=== PATIENT | male | born 1975 | race Caucasian/White ===

== ENCOUNTER 2019-02-08 17:13 | Emergency (ER) | payer OTHER, SELFPAY ==
[2019-02-08 17:33] VITALS: BP 116/86; PULSE 92; RESP 17; TEMP 37; O2SAT 97
--- NOTE | 2019-02-08 17:55 | W.ED.GENAD ---
Discharge Plan Disposition Patient Disposition: [facility] Discharge Details Chief Complaint: ETOHWithdr Clinical Impression: Alcohol withdrawal, Hypokalemia Primary Care Provider: Kim,Local ED Provider: Gerald Gallagher Discharge Instructions Instructions: Hypokalemia (ED) Additional Instructions: You have been evaluated in the emergency room for suspected alcohol withdrawal symptoms. You were found to have a mild low potassium for which we have given you replacement supplementation. You must continue with your alcohol withdrawal protocol in the [facility]. Please follow-up with the [facility] provider tomorrow for reevaluation. Discharge Data Discharge Date/Time-TO BE ENTERED AT DEPARTURE: 02/08/19 20:45 Discharge Physician: Gerald Gallagher Medical Decision Making This is a nontoxic-appearing 43-year-old gentleman with reported seizure-like activity and confusion via [facility] nurse. No seizure activity here. Slightly tremulous on exam. Alert and oriented x2 to person and time. He has no focal neurological deficits on exam. No meningeal signs. No fever and vitals otherwise stable. Labs unremarkable with the exception of a slight hypokalemia at 3.3. Head CT read as normal. Symptoms most likely as a result of EtOH withdrawal. Discussed findings with [facility] nurse who agrees and will kindly take patient back for continued medical detox Medical Records Medical records reviewed: Yes I reviewed the patient's medical records. HPI General Date/Time Provider Initiated Documentation: 02/08/19 17:21. HPI Narrative: Patient is a 43-year-old male who presents to us from the correctional facility for auditory/visual hallucinations in the setting of suspected EtOH detox. Patient has been getting Librium 50 mg 3 times daily. Thiamine was administered. He admits to a 16-year heavy EtOH consumption drinking roughly 6-16 ounce beers per day. His last EtOH consumption was over 48 hours ago. He was initially seen at [facility] where he was medically cleared and transferred to local correctional facility. At facility he has been uncooperative and not eating or drinking. Nurse reports that patient had questionable seizure-like activity. No postictal period. Symptoms lasted for roughly 30 seconds. He denies any history of seizure Related Data Allergies Allergy/AdvReac Type Severity Reaction Status Date / Time blueberry Allergy Unverified 02/08/19 17:35 cocoa butter Allergy Unverified 02/08/19 17:35 General Stated Complaint: ETOHWithdr RENAE: 3 Review of Systems Constitutional Denies anorexia, Denies body ache(s), Denies difficulty sleeping, Denies excessive sweating, Denies fever(s), Denies headache(s), Reports lethargy, Denies malaise, Denies night sweats, Reports poor appetite, Reports weakness and Denies weight loss Eyes Denies blurry vision, Denies change in vision, Denies decreased night vision and Denies diplopia ENT Denies dysphagia, Denies vertigo, Denies dizziness, Denies dry mouth, Denies headache(s) and Denies neck pain Cardiovascular Denies chest pain, Denies chest pain at rest, Denies chest pain with activity, Denies diaphoresis, Denies syncope, Denies rapid heart rate, Denies pedal edema, Denies edema, Denies irregular heart rhythm, Denies lightheadedness, Denies radiating jaw, neck or arm pain, Denies palpitations, Denies dyspnea, Denies dyspnea on exertion, Denies orthopnea and Denies slow heart rate Respiratory Denies dyspnea and Denies dyspnea on exertion Gastrointestinal Denies abdominal pain, Denies melena, Denies bloating, Denies hematochezia, Denies dysphagia, Denies diarrhea, Denies nausea and Denies vomiting Genitourinary Denies dysuria Musculoskeletal Reports back pain, Denies joint swelling and Denies neck pain Neurologic Reports confusion, Denies vertigo, Denies dizziness, Denies syncope, Denies headache(s) and Reports weakness Psychiatric Reports confusion, Denies depression, Reports auditory hallucinations, Reports irritability, Reports mood swings, Denies homicidal ideation and Denies suicidal ideation Endocrine Denies excessive sweating and Denies palpitations [facility] Social History Smoking/Tobacco Use Status: Former Tobacco Use Alcohol Intake: former Details: last drink 01/31/19, heavy drinker prior Additional Social history: lives in correctional facility. Not able to assess privately Exam Const General: cooperative and no acute distress Nutritional Appearance: malnourished and thin Orientation: alert, awake, oriented x3, oriented to person, not oriented to place and oriented to time HENVT Head: normal to inspection, normocephalic and atraumatic Mouth: No moist mucous membranes abnormal Teeth and gingiva: dentition normal Throat: posterior oropharynx normal Eyes Sclera: scleral abnormality (scleral ictarus) bilaterally Neck Neck: normal visual inspection, full ROM and no meningeal signs Chest Chest: normal inspection of the chest Resp Effort & Inspection: normal respiratory effort Auscultation: clear to auscultation bilaterally Cardio Jugular venous pressure: no JVD Palpation: normal PMI Rate: regular rate Heart Sounds: S1 normal GI Inspection: normal to inspection Palpation: soft Percussion: normal to percussion Back/Spine/Pelvis Back: no CVA tenderness Thoracic/Lumbar Spine: thoracic and lumbar spine normal to inspection Neuro General: alert, awake and oriented Patient Orientation: Person and Time Cranial Nerves: CN's II-XI intact bilaterally, PERRL, accommodation normal, EOM intact bilaterally, no nystagmus, facial strength normal, hearing normal, able to rotate head bilaterally and able to elevate shoulders bilaterally Cognition: normal cognition Speech: speech normal Motor: muscle tone normal throughout and strength 5/5 throughout Sensory Exam: no sensory deficits noted Coordination: stejvm-[id number] test normal and [id number] test normal Course Vital Signs Temperature 37.0 C 02/08/19 17:33 Pulse 92 H 02/08/19 17:33 Respiratory Rate 17 02/08/19 17:33 Blood Pressure 116/86 02/08/19 17:33 Pulse Oximetry 97 02/08/19 17:33 Temperature 37.0 C 02/08/19 17:33 Temperature Source Temporal Artery Scan 02/08/19 17:33 Pulse 92 H 02/08/19 17:33 Respiratory Rate 17 02/08/19 17:33 Blood Pressure 116/86 02/08/19 17:33 Blood Pressure Position Sitting 02/08/19 17:33 Pulse Oximetry 97 02/08/19 17:33 Oxygen Delivery Method Room Air 02/08/19 17:33 Oxygen Flow Rate 0 02/08/19 17:33 Pain Level 0 02/08/19 17:33 Lab/Test Results Lab/Test Results: Abnormal Labs 02/08/19 02/08/19 02/08/19 18:30 18:30 18:30 WBC 11.46 H RBC 3.37 L Hgb 9.6 L Hct 29.4 L RDW 17.8 H Absolute Neutrophils 8.33 H Absolute Monocytes 1.13 H Sodium 135 L Potassium 3.3 L Chloride 97 L Anion Gap 13.2 H Creatinine 1.47 H Magnesium 1.6 L Total Protein 8.7 H Acetaminophen < 2 L Laboratory Tests Range/Units 02/08/19 02/08/19 02/08/19 17:43 18:30 18:30 WBC (4.4-10.8) k/cumm RBC (4.50-6.00) m/cumm Hgb (13.5-17.5) g/dL Hct (40.0-50.0) % MCV (80-95) fL MCH (27.0-33.0) pg MCHC (32.0-36.0) g/dL RDW (11.8-14.1) % Plt Count (130-400) x1000/uL MPV (8.0-11.0) fL Immature Gran % Neutrophils % Lymphocytes % Monocytes % Eosinophils % Basophils % Absolute Neutrophils (1.2-6.7) k/cumm Absolute Lymphocytes (1.2-3.4) k/cumm Absolute Monocytes (0.11-0.7) k/cumm Absolute Eosinophils (0.0-0.7) k/cumm Absolute Basophils (0.0-0.2) k/cumm PT (9.3-11.0) sec INR (0.9-1.1) APTT (21.0-31.4) sec Sodium Cancelled 135 L Potassium Cancelled 3.3 L Chloride Cancelled 97 L Carbon Dioxide Cancelled 24.8 Anion Gap Cancelled 13.2 H BUN Cancelled 14 Creatinine Cancelled 1.47 H Estimated GFR/1.73 m2 Cancelled 51.80 Glucose Cancelled 77 Calcium Cancelled 9.0 Magnesium (1.8-2.4) mg/dL 1.6 L Total Bilirubin Cancelled 0.6 AST Cancelled 30 ALT Cancelled 24 Alkaline Phosphatase Cancelled 114 Troponin I Cancelled < 0.02 Total Protein Cancelled 8.7 H Albumin Cancelled 3.5 Amylase (25-115) U/L 87 Lipase (73-393) U/L 103 Salicylates (2.8-20.0) mg/dL 7.3 Acetaminophen (10-30) ug/mL < 2 L Ethyl Alcohol (<3) mg/dL < 3.0 Range/Units 02/08/19 02/08/19 18:30 18:30 WBC (4.4-10.8) k/cumm 11.46 H RBC (4.50-6.00) m/cumm 3.37 L Hgb (13.5-17.5) g/dL 9.6 L Hct (40.0-50.0) % 29.4 L MCV (80-95) fL 87.2 MCH (27.0-33.0) pg 28.5 MCHC (32.0-36.0) g/dL 32.7 RDW (11.8-14.1) % 17.8 H Plt Count (130-400) x1000/uL 303 MPV (8.0-11.0) fL 9.2 Immature Gran % 0.6 Neutrophils % 72.7 Lymphocytes % 16.0 Monocytes % 9.9 Eosinophils % 0.5 Basophils % 0.3 Absolute Neutrophils (1.2-6.7) k/cumm 8.33 H Absolute Lymphocytes (1.2-3.4) k/cumm 1.83 Absolute Monocytes (0.11-0.7) k/cumm 1.13 H Absolute Eosinophils (0.0-0.7) k/cumm 0.06 Absolute Basophils (0.0-0.2) k/cumm 0.03 PT (9.3-11.0) sec 10.4 INR (0.9-1.1) 1.0 APTT (21.0-31.4) sec 25.4 Sodium Potassium Chloride Carbon Dioxide Anion Gap BUN Creatinine Estimated GFR/1.73 m2 Glucose Calcium Magnesium (1.8-2.4) mg/dL Total Bilirubin AST ALT Alkaline Phosphatase Troponin I Total Protein Albumin Amylase (25-115) U/L Lipase (73-393) U/L Salicylates (2.8-20.0) mg/dL Acetaminophen (10-30) ug/mL Ethyl Alcohol (<3) mg/dL Laboratory Tests Range/Units 02/08/19 17:43 Sodium Cancelled Potassium Cancelled Chloride Cancelled Carbon Dioxide Cancelled Anion Gap Cancelled BUN Cancelled Creatinine Cancelled Estimated GFR/1.73 m2 Cancelled Glucose Cancelled Calcium Cancelled Total Bilirubin Cancelled AST Cancelled ALT Cancelled Alkaline Phosphatase Cancelled Troponin I Cancelled Total Protein Cancelled Albumin Cancelled
--- NOTE | 2019-02-08 18:05 | ED.GENADUL_ITS ---
Discharge Plan Disposition Patient Disposition: [facility] Discharge Details Chief Complaint: ETOHWithdr Clinical Impression: Alcohol withdrawal, Hypokalemia Primary Care Provider: Kim,Local ED Provider: Gerald Gallagher Discharge Instructions Instructions: Hypokalemia (ED) Additional Instructions: You have been evaluated in the emergency room for suspected alcohol withdrawal symptoms. You were found to have a mild low potassium for which we have given you replacement supplementation. You must continue with your alcohol withdrawal protocol in the [facility]. Please follow-up with the [facility] provider tomorrow for reevaluation. Discharge Data Discharge Date/Time-TO BE ENTERED AT DEPARTURE: 02/08/19 20:45 Discharge Physician: Gerald Gallagher Medical Decision Making This is a nontoxic-appearing 43-year-old gentleman with reported seizure-like activity and confusion via [facility] nurse. No seizure activity here. Slightly tremulous on exam. Alert and oriented x2 to person and time. He has no focal neurological deficits on exam. No meningeal signs. No fever and vitals otherwise stable. Labs unremarkable with the exception of a slight hypokalemia at 3.3. Head CT read as normal. Symptoms most likely as a result of EtOH withdrawal. Discussed findings with [facility] nurse who agrees and will kindly take patient back for continued medical detox Medical Records Medical records reviewed: Yes I reviewed the patient's medical records. HPI General Date/Time Provider Initiated Documentation: 02/08/19 17:21 . HPI Narrative: Patient is a 43-year-old male who presents to us from the correctional facility for auditory/visual hallucinations in the setting of suspected EtOH detox. Patient has been getting Librium 50 mg 3 times daily. Thiamine was adm inistered. He admits to a 16-year heavy EtOH consumption drinking roughly 6-16 ounce beers per day. His last EtOH consumption was over 48 hours ago. He was initially seen at [facility] where he was medically cleared and transferred to local correctional facility. At facility he has been uncooperative and not eating or drinking. Nurse reports that patient had questionable seizure-like activity. No postictal period. Symptoms lasted for roughly 30 seconds. He denies any history of seizure Related Data Allergies Allergy/AdvReac Type Severity Reaction Status Date / Time blueberry Allergy Unverified 02/08/19 17:35 cocoa butter Allergy Unverified 02/08/19 17:35 General Stated Complaint: ETOHWithdr RENAE: 3 Review of Systems Constitutional Denies anorexia, Denies body ache(s), Denies difficulty sleeping, Denies excessive sweating, Denies fever(s), Denies headache(s), Reports lethargy, Denies malaise, Denies night sweats, Reports poor appetite, Reports weakness and Denies weight loss Eyes Denies blurry vision, Denies change in vision, Denies decreased night vision and Denies diplopia ENT Denies dysphagia, Denies vertigo, Denies dizziness, Denies dry mouth, Denies headache(s) and Denies neck pain Cardiovascular Denies chest pain, Denies chest pain at rest, Denies chest pain with activity, Denies diaphoresis, Denies syncope, Denies rapid heart rate, Denies pedal edema, Denies edema, Denies irregular heart rhythm, Denies lightheadedness, Denies radiating jaw, neck or arm pain, Denies palpitations, Denies dyspnea, Denies dyspnea on exertion, Denies orthopnea and Denies slow heart rate Respiratory Denies dyspnea and Denies dyspnea on exertion Gastrointestinal Denies abdominal pain, Denies melena, Denies bloating, Denies hematochezia, Denies dysphagia, Denies diarrhea, Denies nausea and Denies vomiting Genitourinary Denies dysuria Musculoskeletal Reports back pain, Denies joint swelling and Denies neck pain Neurologic Reports confusion, Denies vertigo, Denies dizziness, Denies syncope, Denies headache(s) and Reports weakness Psychiatric Reports confusion, Denies depression, Reports auditory hallucinations, Reports irritability, Reports mood swings, Denies homicidal ideation and Denies suicidal ideation Endocrine Denies excessive sweating and Denies palpitations [facility] Social History Smoking/Tobacco Use Status: Former Tobacco Use Alcohol Intake: former Details: last drink 01/31/19, heavy drinker prior Additional Social history: lives in correctional facility. Not able to assess privately Exam Const General: cooperative and no acute distress Nutritional Appearance: malnourished and thin Orientation: alert, awake, oriented x3, oriented to person, not oriented to place and oriented to time HENMT Head: normal to inspection, normocephalic and atraumatic Mouth: No moist mucous membranes abnormal Teeth and gingiva: dentition normal Throat: posterior oropharynx normal Eyes Sclera: scleral abnormality (scleral ictarus) bilaterally Neck Neck: normal visual inspection, full ROM and no meningeal signs Chest Chest: normal inspection of the chest Resp Effort & Inspection: normal respiratory effort Auscultation: clear to auscultation bilaterally Cardio Jugular venous pressure: no JVD Palpation: normal PMI Rate: regular rate Heart Sounds: S1 normal GI Inspection: normal to inspection Palpation: soft Percussion: normal to percussion Back/Spine/Pelvis Back: no CVA tenderness Thoracic/Lumbar Spine: thoracic and lumbar spine normal to inspection Neuro General: alert, awake and oriented Patient Orientation: Person and Time Cranial Nerves: CN's II-XI intact bilaterally, PERRL, accommodation normal, EOM intact bilaterally, no nystagmus, facial strength normal, hearing normal, able to rotate head bilaterally and able to elevate shoulders bilaterally Cognition: normal cognition Speech: speech normal Motor: muscle tone normal throughout and strength 5/5 throughout Sensory Exam: no sensory deficits noted Coordination: [id number]-[id number] test normal and [id number]-er-[id number] test normal Course Vital Signs Temperature 37.0 C 02/08/19 17:33 Pulse 92 H 02/08/19 17:33 Respiratory Rate 17 02/08/19 17:33 Blood Pressure 116/86 02/08/19 17:33 Pulse Oximetry 97 02/08/19 17:33 Temperature 37.0 C 02/08/19 17:33 Temperature Source Temporal Artery Scan 02/08/19 17:33 Pulse 92 H 02/08/19 17:33 Respiratory Rate 17 02/08/19 17:33 Blood Pressure 116/86 02/08/19 17:33 Blood Pressure Position Sitting 02/08/19 17:33 Pulse Oximetry 97 02/08/19 17:33 Oxygen Delivery Method Room Air 02/08/19 17:33 Oxygen Flow Rate 0 02/08/19 17:33 Pain Level 0 02/08/19 17:33 Lab/Test Results Lab/Test Results: Abnormal Labs 02/08/19 02/08/19 02/08/19 18:30 18:30 18:30 WBC 11.46 H RBC 3.37 L Hgb 9.6 L Hct 29.4 L RDW 17.8 H Absolute Neutrophils 8.33 H Absolute Monocytes 1.13 H Sodium 135 L Potassium 3.3 L Chloride 97 L Anion Gap 13.2 H Creatinine 1.47 H Magnesium 1.6 L Total Protein 8.7 H Acetaminophen < 2 L Laboratory Tests Range/Units 02/08/19 02/08/19 02/08/19 17:43 18:30 18:30 WBC (4.4-10.8) k/cumm RBC (4.50-6.00) m/cumm Hgb (13.5-17.5) g/dL Hct (40.0-50.0) % MCV (80-95) fL MCH (27.0-33.0) pg MCHC (32.0-36.0) g/dL RDW (11.8-14.1) % Plt Count (130-400) x1000/uL MPV (8.0-11.0) fL Immature Gran % Neutrophils % Lymphocytes % Monocytes % Eosinophils % Basophils % Absolute Neutrophils (1.2-6.7) k/cumm Absolute Lymphocytes (1.2-3.4) k/cumm Absolute Monocytes (0.11-0.7) k/cumm Absolute Eosinophils (0.0-0.7) k/cumm Absolute Basophils (0.0-0.2) k/cumm PT (9.3-11.0) sec INR (0.9-1.1) APTT (21.0-31.4) sec Sodium Cancelled 135 L Potassium Cancelled 3.3 L Chloride Cancelled 97 L Carbon Dioxide Cancelled 24.8 Anion Gap Cancelled 13.2 H BUN Cancelled 14 Creatinine Cancelled 1.47 H Estimated GFR/1.73 m2 Cancelled 51.80 Glucose Cancelled 77 Calcium Cancelled 9.0 Magnesium (1.8-2.4) mg/dL 1.6 L Total Bilirubin Cancelled 0.6 AST Cancelled 30 ALT Cancelled 24 Alkaline Phosphatase Cancelled 114 Troponin I Cancelled < 0.02 Total Protein Cancelled 8.7 H Albumin Cancelled 3.5 Amylase (25-115) U/L 87 Lipase (73-393) U/L 103 Salicylates (2.8-20.0) mg/dL 7.3 Acetaminophen (10-30) ug/mL < 2 L Ethyl Alcohol (<3) mg/dL < 3.0 Range/Units 02/08/19 02/08/19 18:30 18:30 WBC (4.4-10.8) k/cumm 11.46 H RBC (4.50-6.00) m/cumm 3.37 L Hgb (13.5-17.5) g/dL 9.6 L Hct (40.0-50.0) % 29.4 L MCV (80-95) fL 87.2 MCH (27.0-33.0) pg 28.5 MCHC (32.0-36.0) g/dL 32.7 RDW (11.8-14.1) % 17.8 H Plt Count (130-400) x1000/uL 303 MPV (8.0-11.0) fL 9.2 Immature Gran % 0.6 Neutrophils % 72.7 Lymphocytes % 16.0 Monocytes % 9.9 Eosinophils % 0.5 Basophils % 0.3 Absolute Neutrophils (1.2-6.7) k/cumm 8.33 H Absolute Lymphocytes (1.2-3.4) k/cumm 1.83 Absolute Monocytes (0.11-0.7) k/cumm 1.13 H Absolute Eosinophils (0.0-0.7) k/cumm 0.06 Absolute Basophils (0.0-0.2) k/cumm 0.03 PT (9.3-11.0) sec 10.4 INR (0.9-1.1) 1.0 APTT (21.0-31.4) sec 25.4 Sodium Potassium Chloride Carbon Dioxide Anion Gap BUN Creatinine Estimated GFR/1.73 m2 Glucose Calcium Magnesium (1.8-2.4) mg/dL Total Bilirubin AST ALT Alkaline Phosphatase Troponin I Total Protein Albumin Amylase (25-115) U/L Lipase (73-393) U/L Salicylates (2.8-20.0) mg/dL Acetaminophen (10-30) ug/mL Ethyl Alcohol (<3) mg/dL Laboratory Tests Range/Units 02/08/19 17:43 Sodium Cancelled Potassium Cancelled Chloride Cancelled Carbon Dioxide Cancelled Anion Gap Cancelled BUN Cancelled Creatinine Cancelled Estimated GFR/1.73 m2 Cancelled Glucose Cancelled Calcium Cancelled Total Bilirubin Cancelled AST Cancelled ALT Cancelled Alkaline Phosphatase Cancelled Troponin I Cancelled Total Protein Cancelled Albumin Cancelled
[2019-02-08] MEDS: MAGNESIUM SULFATE 8.12 MEQ, MULTIVITAMIN 10 ML, THIAMINE 100 MG, FOLIC ACID 1 MG in Nor... 168.867 MG IV (18:25)
[2019-02-08] MEDS: LORazepam 1 MG TAB PO (18:25)
[2019-02-08 18:41] LABS: Abs Immature Grans 0.07 k/cumm (0.0-0.09); Absolute Basophil Count 0.03 k/cumm (0.0-0.2); Absolute Eosinophil Count 0.06 k/cumm (0.0-0.7); Absolute Lymphocyte Count 1.83 k/cumm (1.2-3.4); Absolute Neutrophil Count 8.33 k/cumm (1.2-6.7); Basophils % 0.3; Eosinophils % 0.5; HCT 29.4 % (40.0-50.0); HGB 9.6 g/dL (13.5-17.5); Immature Grans % 0.6; Mean Corp. HGB Concentration 32.7 g/dL (32.0-36.0); Mean Corpuscular Hemoglobin 28.5 pg (27.0-33.0); Mean Corpuscular Volume 87.2 fL (80-95); Mean Platelet Volume 9.2 fL (8.0-11.0); Monocytes % 9.9; Neutrophils % 72.7; Platelet Count 303 x1000/uL (130-400); RBC 3.37 m/cumm (4.50-6.00); RBC Distribution Width 17.8 % (11.8-14.1); White Blood Cell Count 11.46 k/cumm (4.4-10.8)
[2019-02-08 18:43] LABS: Absolute Monocyte Count 1.13 k/cumm (0.11-0.7)
--- NOTE | 2019-02-08 18:51 | DI.CT_ITS ---
SYMPTOM/DIAGNOSIS: CONFUSION, WEAKNESS, ? SEIZURE, ETOH ABUSE CRANIAL CT: A noncontrast enhanced examination was performed. There is mild age-associated parenchymal atrophy with prominence of the cortical sulci. Regions of hypodensity in the frontoparietal white matter would be consistent with small vessel disease. The paez-white matter differentiation is intact. There is no evidence of an intra or extra axial hemorrhage. The ventricles are unremarkable. There is no midline shift. There is no skull fracture. The paranasal sinuses appear intact. There is no mastoid effusion. The orbits are unremarkable. SUMMARY: No acute intracranial abnormality is seen.
--- NOTE | 2019-02-08 19:03 | DI.VRAD_ITS ---
EXAM: CT Head Without Contrast EXAM DATE/TIME: 02/08/2019 5:48 PM CLINICAL HISTORY: 43 years old, male; Signs and symptoms; Other: Confusion, weakness, ? seizure, ETOH abuse TECHNIQUE: Imaging protocol: Axial computed tomography images of the head/brain without contrast. Coronal and sagittal reformatted images were created and reviewed. COMPARISON: No relevant prior studies available. FINDINGS: Brain: There is mild age related parenchymal atrophy with prominence of the cortical sulci. Periventricular and deep white matter hypodensities are consistent with sequela of chronic microvascular ischemic disease. Yi-white matter differentiation is preserved. No acute intracranial hemorrhage. Midline shift: None. Ventricles: Unremarkable.No ventriculomegaly. Bones/joints: Unremarkable. No acute fracture. Sinuses: Paranasal sinuses are well aerated without air fluid level. Mastoid air cells: No mastoid effusion. Orbits: Unremarkable. Soft tissues: No focal soft tissue abnormality. IMPRESSION: No acute intracranial finding. Dictated and Authenticated by: Arian Prasad MD. Ordering:JACKSON Duarte MD
[2019-02-08 19:10] LABS: ALT 24 U/L (12-78); AST 30 U/L (15-37); Albumin 3.5 g/dL (3.4-5.0); Alkaline Phosphatase 114 U/L (46-116); Amylase 87 U/L (25-115); Anion Gap 13.2 mmol/L (3-11); BUN 14 mg/dL (7-18); Bilirubin, Total 0.6 mg/dL (0.2-1.0); CO2 24.8 mmol/L (21.0-32.0); CREATININE 1.47 mg/dL (0.70-1.30); Chloride 97 mmol/L (98-107); Glucose 77 mg/dL (70-100); Lipase 103 U/L (73-393); Magnesium 1.6 mg/dL (1.8-2.4); Potassium 3.3 mmol/L (3.5-5.1); Sodium 135 mmol/L (136-145); Total Protein 8.7 g/dL (6.4-8.2)
[2019-02-08 19:13] VITALS: PULSE 91; RESP 18; TEMP 36.7; O2SAT 96
[2019-02-08 19:13] LABS: PTT Activated 25.4 sec (21.0-31.4); Prothrombin Time 10.4 sec (9.3-11.0)
[2019-02-08 19:15] LABS: Troponin I < 0.02 ng/mL (0.00-0.06)
[2019-02-08 19:18] LABS: Salicylate 7.3 mg/dL (2.8-20.0)
[2019-02-08 19:19] LABS: Acetaminophen < 2 ug/mL (10-30)
[2019-02-08 19:26] LABS: ETHANOL BLOOD < 3.0 mg/dL (<3)
--- NOTE | 2019-02-08 20:15 | NUR.NOTE ---
Nursing Note: pt states unable to void at this time. Wants to return to correctional facility. Pt is fully oriented, no hallucinations present.
[2019-02-08 20:56] VITALS: BP 115/67; PULSE 91; RESP 18; TEMP 36.7; O2SAT 96
[2019-02-08] MEDS: Potassium Chloride 20 MEQ TABCR (20:56)
== END 2019-02-08 20:45 | disposition home or self-care (01) ==
PROVIDERS: Emergency Provider Physician Assistant
DX: F10.231 Alcohol dependence with withdrawal delirium (principal); E87.6 Hypokalemia
CPT/HCPCS: 36415; 80053; 83690; 96365; 96366; 99284; 70450; 80320; 80329; 82150; 83735; 84484; 85025; 85610; 85730; 99285

== ENCOUNTER 2019-03-01 11:28 | Outpatient (CLI) | payer OTHER, SELFPAY ==
[2019-03-01 12:12] LABS: HCT 33.2 % (40.0-50.0); HGB 10.5 g/dL (13.5-17.5); Mean Corp. HGB Concentration 31.6 g/dL (32.0-36.0); Mean Corpuscular Hemoglobin 27.4 pg (27.0-33.0); Mean Corpuscular Volume 86.7 fL (80-95); Platelet Count 535 x1000/uL (130-400); RBC 3.83 m/cumm (4.50-6.00); RBC Distribution Width 17.8 % (11.8-14.1); White Blood Cell Count 8.41 k/cumm (4.4-10.8)
[2019-03-01 14:31] LABS: Iron 87 ug/dL (50-175); Total Iron Binding Capacity 398 ug/dL (250-450); Transferrin Sat 22 % (20-55)
[2019-03-01 14:32] LABS: ALT 23 U/L (12-78); AST 18 U/L (15-37); Albumin 3.5 g/dL (3.4-5.0); Alkaline Phosphatase 93 U/L (46-116); Anion Gap 8.5 mmol/L (3-11); BUN 7 mg/dL (7-18); Bilirubin, Total 0.3 mg/dL (0.2-1.0); CO2 28.5 mmol/L (21.0-32.0); Calcium 9.6 mg/dL (8.5-10.1); Chloride 102 mmol/L (98-107); Glucose 95 mg/dL (70-100); Potassium 4.5 mmol/L (3.5-5.1); Sodium 139 mmol/L (136-145); Total Protein 7.9 g/dL (6.4-8.2)
== END 2019-03-01 11:48 ==
PROVIDERS: Visit Provider Surgery
DX: K62.5 Hemorrhage of anus and rectum (principal); D64.9 Anemia, unspecified
CPT/HCPCS: 36415; 80053; 85027; 86850; 86900; 86901; 83540; 83550

== ENCOUNTER 2019-07-01 10:47 | Day surgery (SDC) | payer OTHER, SELFPAY ==
[2019-07-01 11:11] VITALS: BP 118/81; PULSE 84; RESP 16; TEMP 36.1; O2SAT 96
[2019-07-01] MEDS: Lactated Ringers 1,000 ML 80 ML IV (11:38)
--- NOTE | 2019-07-01 12:52 | W.PM.DSUDISC ---
Discharge Plan Disposition Patient Disposition: [facility] Condition: Good Discharge Details Reason For Visit: Colonoscopy Attending Provider: Elsi Krishnan Primary Care Provider: Kim,Local Home Meds and New Rx's Prescriptions: Continued thiamine HCl (vitamin B1) 100 mg tablet 100 mg PO DAILY RF: 0 acetaminophen 325 mg capsule 650 mg PO BID PRNRF: 0 hydroxyzine HCl 50 mg tablet 50 mg PO QHS PRNRF: 0 Discharge Instructions Additional Instructions: Findings: Your colonoscopy showed diverticulosis and internal hemorrhoids, which are the likely source of bleeding. Try to consume a high fiber diet. Follow up: Plan for a screening colonoscopy in 10 years or sooner if new symptoms arise Please call if you develop: fevers >101.5 Nausea or Vomiting Abdominal pain that is not transient DAY SURGERY UNIT POST COLONOSCOPY INSTRUCTIONS 1. Because there will be medication in your system for the next 24 hours, you may feel a little sleepy. Your coordination will be affected. Therefore: a. Do not drive or operate dangerous equipment for 24 hours. b. Do not drink alcohol beverages for 24 hours (not even beer). c. Plan to go home and rest for the day. 2. Generally there are no restrictions on your activity after a day or so has gone by, but you may feel a bit fatigued for a few days. 3 After you arrive home you may have a light meal and return to a normal diet as you can tolerate it without feeling sick to your stomach. 4. After surgery, you may feel pain or discomfort. This should be only transient, but if it persists please contact your doctor. 5. If there are any questions regarding the findings of your procedure, please feel free to contact your doctor. 6. If you are unable to contact your doctor with a problem, contact the hospital at [phone]. 7. Continue all your regular medications unless directed otherwise. I understand the above instructions and have no questions. Signature of Patient or Responsible Adult Escort Date/Time Name of Responsible Adult Escort Signature of Nurse Date/Time Activity:: Activity as Tolerated Diet:: As Tolerated Discharge Orders Discharge Orders: Discharge Order (Routine); Ordered 07/01/19 Ordered By: Elsi Krishnan DS: Diagnosis Discharge Diagnosis (1) Diverticulosis: Status: Acute (2) Internal hemorrhoids: Status: Acute (3) H/O colonoscopy:
[2019-07-01 13:29] VITALS: BP 126/95; PULSE 67; RESP 16; TEMP 36; O2SAT 100
--- NOTE | 2019-07-02 09:20 | COLE_ITS ---
DATE OF PROCEDURE: July 01, 2019 PREOPERATIVE DIAGNOSIS: Rectal bleeding. POSTOPERATIVE DIAGNOSIS: 1. Diverticulosis. 2. Internal hemorrhoids. PROCEDURE: Colonoscopy. SURGEON: Elsi Krishnan M.D. ANESTHESIA: General. INDICATIONS: This is a 43-year-old man who had issues with rectal bleeding. This has resolved. He denies a family history of colon cancer. He has not had a previous colonoscopy. PROCEDURE: He was placed in the left Wallace position. Propofol was titrated to sedation. Digital rec jon examination revealed no abnormalities. The scope was advanced to the cecum without difficulty. The ileocecal valve and appendiceal orifice were clearly identified. His prep was good. The scope w as slowly withdrawn with no abnormalities seen within the ascending, transverse, descending and sigmo id colon or rectum, including on retroflex view, with the exception of some prominent internal hemorr hoids. He had also been noted to have moderate sigmoid diverticulosis. He tolerated the procedure w ell and was stable to recovery. He will need a follow-up screening again in ten years or sooner if s ymptoms indicate. He was advised to increase his fiber intake.
== END 2019-07-01 13:45 | disposition home or self-care (01) ==
PROVIDERS: Visit Provider Surgery
PROC: 0DJD8ZZ Inspection of Lower Intestinal Tract, Via Natural or Artificial Opening Endoscopic (ICD-10-PCS; CPT 45378; principal; 2019-07-01 12:00)
DX: K62.5 Hemorrhage of anus and rectum (principal); K64.0 First degree hemorrhoids; K57.30 Diverticulosis of large intestine without perforation or abscess without bleeding
CPT/HCPCS: 45378